=== PATIENT | male | born 1970 | race Caucasian/White ===

== ENCOUNTER 2020-06-11 13:29 | Emergency (ER) | payer MEDICARE, OTHER ==
[~2020-06-11] VITALS: Ht 170.2 cm; Wt 90.0 kg
[2020-06-11 13:32] VITALS: BP 136/80
--- NOTE | 2020-06-11 14:44 | NUR ---
Patient seen and assessed by provider.
== END 2020-06-11 14:47 | disposition home or self-care (01) ==
LOC: ER 13:30
DX: F15.10 Other stimulant abuse, uncomplicated (principal); F17.200 Nicotine dependence, unspecified, uncomplicated
CPT/HCPCS: 99281

== ENCOUNTER 2020-12-10 12:14 | Emergency (ER) | payer MEDICARE, OTHER ==
[~2020-12-10] VITALS: Ht 170.2 cm; Wt 85.5 kg
[2020-12-10 12:22] VITALS: BP 119/81
[2020-12-10] MEDS ORDERED: CEPH250T PO (13:12)
== END 2020-12-10 13:34 | disposition home or self-care (01) ==
LOC: ER 12:14
DX: S20.362A Insect bite (nonvenomous) of left front wall of thorax, initial encounter (principal); L02.213 Cutaneous abscess of chest wall; F15.90 Other stimulant use, unspecified, uncomplicated; Z79.2 Long term (current) use of antibiotics; W57.XXXA Bitten or stung by nonvenomous insect and other nonvenomous arthropods, initial encounter; Y93.89 Activity, other specified; Y92.89 Other specified places as the place of occurrence of the external cause; Y99.8 Other external cause status
CPT/HCPCS: 10060; 99283

== ENCOUNTER 2021-03-06 16:50 | Emergency (ER) | payer MEDICARE ==
[~2021-03-06] VITALS: Ht 170.2 cm; Wt 90.9 kg
[2021-03-06 17:07] VITALS: BP 158/103
[2021-03-06] MEDS ORDERED: LURA80TA3 PO (17:10)
== END 2021-03-06 18:03 | disposition home or self-care (01) ==
LOC: ER 16:50
DX: Z76.0 Encounter for issue of repeat prescription (principal); F22 Delusional disorders; R10.9 Unspecified abdominal pain; E11.9 Type 2 diabetes mellitus without complications; F20.9 Schizophrenia, unspecified; F15.90 Other stimulant use, unspecified, uncomplicated; Z88.2 Allergy status to sulfonamides; Z79.899 Other long term (current) drug therapy
CPT/HCPCS: 99281

== ENCOUNTER 2021-11-26 05:09 | Emergency (ER) | payer MEDICARE, MEDICAID ==
[~2021-11-26] VITALS: Ht 170.2 cm; Wt 90.9 kg
[~2021-11-26 05:09] MED LIST: LURA80TA2 PO
[2021-11-26 05:22] VITALS: BP 125/80
== END 2021-11-26 06:34 | disposition left against medical advice (07) ==
LOC: ER 05:10
DX: L29.9 Pruritus, unspecified (principal); Z53.21 Procedure and treatment not carried out due to patient leaving prior to being seen by health care provider

== ENCOUNTER 2022-02-02 16:40 | Emergency (ER) | payer MEDICAID, MEDICARE ==
[~2022-02-02] VITALS: Ht 170.2 cm; Wt 86.0 kg
[2022-02-02 16:50] VITALS: BP 128/78
[2022-02-02] MEDS ORDERED: LIDOCAINE 1%/EPI 1:100,000 inj. 10 ML multi-dose vial IJ ONE (17:30)
[2022-02-02] MEDS ORDERED: DOXYCYCLINE 100MG CAPSULE PO STA (17:31)
[2022-02-02] MEDS ORDERED: cephalexin 250mg capsule PO ONE (17:35)
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
[2022-02-02] MEDS ORDERED: DOXY100C76 PO (17:51)
[2022-02-02] MEDS ORDERED: CEPH250T PO (17:51)
== END 2022-02-02 18:02 | disposition home or self-care (01) ==
LOC: ER 16:40
DX: L02.212 Cutaneous abscess of back [any part, except buttock and flank] (principal); E11.9 Type 2 diabetes mellitus without complications; F20.9 Schizophrenia, unspecified; F15.90 Other stimulant use, unspecified, uncomplicated; Z72.0 Tobacco use; Z88.2 Allergy status to sulfonamides; Z79.2 Long term (current) use of antibiotics; Z79.899 Other long term (current) drug therapy
CPT/HCPCS: 10060; 99283; J3490; A6449

== ENCOUNTER 2022-08-28 08:37 | Emergency (ER) | payer MEDICAID ==
[~2022-08-28] VITALS: Ht 170.2 cm; Wt 83.0 kg
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
[2022-08-28 10:03] LABS: BASOPHILS # (AUTO) 0.1 X10'3 (0-0.2); BASOPHILS % (AUTO) 0.9 % (0-1); EOSINOPHILS # (AUTO) 0.3 X10'3 (0-0.9); EOSINOPHILS % (AUTO) 3.7 % (0-6); HEMATOCRIT 43.9 % (42.0-52.0); HEMOGLOBIN 14.4 g/dl (14.0-17.9); LYMPHOCYTES # (AUTO) 2.9 X10'3 (1.1-4.8); LYMPHOCYTES % (AUTO) 34.1 % (21-51); MEAN CORPUSCULAR HEMOGLOBIN 27.8 PG (27.0-31.0); MEAN CORPUSCULAR HGB CONC 32.8 g/dL (33.0-36.5); MEAN CORPUSCULAR VOLUME 84.6 FL (78-98); MEAN PLATELET VOLUME 7.4 FL (7.4-10.4); MONOCYTES # (AUTO) 0.5 X10'3 (0-0.9); MONOCYTES % (AUTO) 5.8 % (2-12); NEUTROPHILS # (AUTO) 4.8 X10'3 (1.8-7.7); NEUTROPHILS % (AUTO) 55.5 % (42-75); PLATELET COUNT 313 X10'3 (140-440); RED CELL DISTRIBUTION WIDTH 14.8 % (11.5-14.5); WHITE BLOOD COUNT 8.6 X10'3 (4.5-11.0)
[2022-08-28 10:08] LABS: ALANINE AMINOTRANSFERASE 25 U/L (12-78); ALBUMIN 3.6 G/DL (3.4-5.0); ALBUMIN/GLOBULIN RATIO 1.1 (1.1-1.5); ALKALINE PHOSPHATASE 109 IU/L (46-116); ANION GAP 4 (8-16); ASPARTATE AMINO TRANSFERASE 12 U/L (10-37); BILIRUBIN,TOTAL 0.4 MG/DL (0.1-1.0); BLOOD UREA NITROGEN 8 MG/DL (7-18); CALCIUM 9.4 MG/DL (8.5-10.1); CHLORIDE 104 MMOL/L (99-107); ETHANOL < 0.010 GM/DL (0.0-0.010); GLUCOSE 164 MG/DL (70-104); POTASSIUM 4.5 MMOL/L (3.5-5.1); SODIUM 141 MMOL/L (135-145); TOTAL CARBON DIOXIDE 33.2 MMOL/L (24-32); eGFR 78 ML/MIN
[2022-08-28 10:22] VITALS: BP 150/95
[2022-08-28 11:05] LABS: CLARITY,URINE CLEAR (Clear); COLOR,URINE YELLOW (Yellow); GLUCOSE, URINE NEGATIVE (Neg); KETONES,URINE NEGATIVE (Neg); LEUKOCYTE ESTERASE ,URINE NEGATIVE (Neg); NITRITES, URINE NEGATIVE (Neg); OCCULT BLOOD,URINE NEGATIVE (Neg); PROTEIN,URINE NEGATIVE (Neg); UROBILINOGEN,URINE 0.2 E.U/dL (0.2-1.0)
[2022-08-28 11:20] LABS: URINE AMPHETAMINE SCREEN NEGATIVE (Neg); URINE BARBITUATE SCREEN NEGATIVE (Neg); URINE BENZODIAZEPINES SCREEN NEGATIVE (Neg); URINE CANNABINOID SCREEN NEGATIVE (Neg); URINE COCAINE SCREEN NEGATIVE (Neg); URINE METHADONE SCREEN NEGATIVE (Neg); URINE OPIATE SCREEN NEGATIVE (Neg); URINE PHENCYCLIDINE SCREEN NEGATIVE (Neg)
[2022-08-28 11:23] LABS: UA COLLECTION TYPE CLN CATCH MIDSTREAM
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
== END 2022-08-28 13:12 | disposition left against medical advice (07) ==
LOC: ER 08:38
DX: F79 Unspecified intellectual disabilities (principal); M25.511 Pain in right shoulder; F20.9 Schizophrenia, unspecified; E11.9 Type 2 diabetes mellitus without complications; F15.10 Other stimulant abuse, uncomplicated; Z88.2 Allergy status to sulfonamides; Z79.899 Other long term (current) drug therapy
CPT/HCPCS: 36415; 70450; 80053; 80305; 80320; 81003; 82948; 85025; 99285

== ENCOUNTER 2022-09-15 20:50 | Emergency (ER) | payer MEDICAID ==
[~2022-09-15] VITALS: Ht 170.2 cm; Wt 90.0 kg
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
[2022-09-15] MEDS ORDERED: acetaminophen 325mg tablet PO ONE (22:30)
[2022-09-16 00:04] VITALS: BP 130/81
== END 2022-09-16 00:05 | disposition home or self-care (01) ==
LOC: ER 20:51
DX: S00.81XA Abrasion of other part of head, initial encounter (principal); F17.200 Nicotine dependence, unspecified, uncomplicated; F15.20 Other stimulant dependence, uncomplicated; M25.522 Pain in left elbow; Z88.2 Allergy status to sulfonamides; E11.9 Type 2 diabetes mellitus without complications; Y08.89XA Assault by other specified means, initial encounter; Y93.89 Activity, other specified; Y92.89 Other specified places as the place of occurrence of the external cause; Y99.8 Other external cause status
CPT/HCPCS: 70450; 70486; 72125; 73080; 93005; 99284

== ENCOUNTER 2022-09-19 19:05 | Emergency (ER) | payer MEDICAID ==
[~2022-09-19] VITALS: Ht 170.2 cm; Wt 84.1 kg
[2022-09-19 19:09] VITALS: BP 137/95
[2022-09-19 20:21] LABS: BASOPHILS # (AUTO) 0.1 X10'3 (0-0.2); EOSINOPHILS # (AUTO) 0.4 X10'3 (0-0.9); EOSINOPHILS % (AUTO) 4.5 % (0-6); HEMATOCRIT 41.4 % (42.0-52.0); HEMOGLOBIN 13.9 g/dl (14.0-17.9); LYMPHOCYTES % (AUTO) 32.1 % (21-51); MEAN CORPUSCULAR HEMOGLOBIN 27.9 PG (27.0-31.0); MEAN CORPUSCULAR HGB CONC 33.6 g/dL (33.0-36.5); MEAN CORPUSCULAR VOLUME 83.1 FL (78-98); MEAN PLATELET VOLUME 7.2 FL (7.4-10.4); MONOCYTES # (AUTO) 0.8 X10'3 (0-0.9); MONOCYTES % (AUTO) 8.8 % (2-12); NEUTROPHILS # (AUTO) 5.1 X10'3 (1.8-7.7); NEUTROPHILS % (AUTO) 53.6 % (42-75); PLATELET COUNT 289 X10'3 (140-440); RED BLOOD COUNT 4.98 X10'6 (4.70-6.10); RED CELL DISTRIBUTION WIDTH 14.6 % (11.5-14.5); WHITE BLOOD COUNT 9.4 X10'3 (4.5-11.0)
[2022-09-19 20:39] LABS: ALANINE AMINOTRANSFERASE 25 U/L (12-78); ALBUMIN 3.9 G/DL (3.4-5.0); ALBUMIN/GLOBULIN RATIO 1.1 (1.1-1.5); ALKALINE PHOSPHATASE 113 IU/L (46-116); ANION GAP 9 (8-16); ASPARTATE AMINO TRANSFERASE 16 U/L (10-37); BILIRUBIN,TOTAL 0.7 MG/DL (0.1-1.0); BLOOD UREA NITROGEN 13 MG/DL (7-18); BUN/CREATININE RATIO 12.1 (10.0-20.0); CALCIUM 9.4 MG/DL (8.5-10.1); CHLORIDE 107 MMOL/L (99-107); CREATININE 1.07 MG/DL (0.60-1.10); GLUCOSE 121 MG/DL (70-104); POTASSIUM 4.1 MMOL/L (3.5-5.1); SODIUM 145 MMOL/L (135-145); TOTAL CARBON DIOXIDE 28.9 MMOL/L (24-32); TOTAL PROTEIN 7.5 G/DL (6.4-8.2); eGFR 72 ML/MIN
== END 2022-09-19 21:40 | disposition home or self-care (01) ==
LOC: ER 19:06
DX: R42 Dizziness and giddiness (principal); Z53.21 Procedure and treatment not carried out due to patient leaving prior to being seen by health care provider
CPT/HCPCS: 36415; 80053; 85025; 99281

== ENCOUNTER 2022-11-07 18:59 | Emergency (ER) | payer MEDICAID ==
[~2022-11-07] VITALS: Ht 170.2 cm; Wt 81.3 kg
[~2022-11-07 18:59] MED LIST changes: +CEPH-585 PO
[2022-11-07 19:04] VITALS: BP 153/93; PULSE 91; RESP 18; TEMP 97.3; O2SAT 98
[2022-11-07] MEDS ORDERED: ibuprofen tablet 400 MG TABLET PO ONE (19:50)
== END 2022-11-07 20:15 | disposition home or self-care (01) ==
LOC: ER 18:59
DX: S76.812A Strain of other specified muscles, fascia and tendons at thigh level, left thigh, initial encounter (principal); W17.89XA Other fall from one level to another, initial encounter; Y93.89 Activity, other specified; Y92.89 Other specified places as the place of occurrence of the external cause; Y99.8 Other external cause status; E11.9 Type 2 diabetes mellitus without complications; F20.9 Schizophrenia, unspecified; F17.200 Nicotine dependence, unspecified, uncomplicated; F12.10 Cannabis abuse, uncomplicated; F15.10 Other stimulant abuse, uncomplicated; Z79.899 Other long term (current) drug therapy; Z88.2 Allergy status to sulfonamides
CPT/HCPCS: 73552; 99283

== ENCOUNTER 2023-02-08 17:49 | Emergency (ER) | payer MEDICARE, MEDICAID ==
[~2023-02-08] VITALS: Ht 170.2 cm; Wt 82.3 kg
[2023-02-08 18:08] LABS: BASOPHILS # (AUTO) 0.1 X10'3 (0-0.2); BASOPHILS % (AUTO) 0.7 % (0-1); EOSINOPHILS # (AUTO) 0.6 X10'3 (0-0.9); EOSINOPHILS % (AUTO) 5.4 % (0-6); HEMATOCRIT 41.6 % (42.0-52.0); HEMOGLOBIN 14.1 g/dl (14.0-17.9); LYMPHOCYTES # (AUTO) 2.7 X10'3 (1.1-4.8); MEAN CORPUSCULAR HEMOGLOBIN 28.2 PG (27.0-31.0); MEAN CORPUSCULAR VOLUME 83.1 FL (78-98); MONOCYTES # (AUTO) 0.7 X10'3 (0-0.9); MONOCYTES % (AUTO) 7.1 % (2-12); NEUTROPHILS # (AUTO) 6.4 X10'3 (1.8-7.7); NEUTROPHILS % (AUTO) 60.8 % (42-75); PLATELET COUNT 286 X10'3 (140-440); RED BLOOD COUNT 5.01 X10'6 (4.70-6.10); RED CELL DISTRIBUTION WIDTH 14.2 % (11.5-14.5); WHITE BLOOD COUNT 10.5 X10'3 (4.5-11.0)
[2023-02-08 18:14] VITALS: BP 146/93; PULSE 88; RESP 18; TEMP 98.5; O2SAT 99
[2023-02-08 18:26] LABS: ALANINE AMINOTRANSFERASE 20 U/L (12-78); ALBUMIN 3.7 G/DL (3.4-5.0); ALBUMIN/GLOBULIN RATIO 0.9 (1.1-1.5); ALKALINE PHOSPHATASE 109 IU/L (46-116); ANION GAP 7 (8-16); ASPARTATE AMINO TRANSFERASE 14 U/L (10-37); BILIRUBIN,TOTAL 0.3 MG/DL (0.1-1.0); BLOOD UREA NITROGEN 13 MG/DL (7-18); CALCIUM 9.6 MG/DL (8.5-10.1); CHLORIDE 103 MMOL/L (99-107); GLUCOSE 118 MG/DL (70-104); POTASSIUM 3.9 MMOL/L (3.5-5.1); SODIUM 141 MMOL/L (135-145); TOTAL CARBON DIOXIDE 30.9 MMOL/L (24-32); TOTAL PROTEIN 7.6 G/DL (6.4-8.2); eCRCL 80 ML/MIN; eGFR 78 ML/MIN
[2023-02-08 18:35] LABS: PRO BRAIN NATRIURETIC PEPTIDE 95 PG/ML (0-125)
== END 2023-02-08 20:04 | disposition left against medical advice (07) ==
LOC: ER 17:50
DX: R07.89 Other chest pain (principal); M79.631 Pain in right forearm; Z53.21 Procedure and treatment not carried out due to patient leaving prior to being seen by health care provider
CPT/HCPCS: 36415; 71046; 73060; 73090; 80053; 83880; 84484; 85025; 93005; 99281

== ENCOUNTER 2023-02-11 09:59 | Emergency (ER) | payer MEDICAID, MEDICARE ==
[~2023-02-11] VITALS: Ht 170.2 cm; Wt 83.0 kg
[2023-02-11 10:24] VITALS: BP 133/96; PULSE 91; RESP 16; TEMP 97.7; O2SAT 97
--- NOTE | 2023-02-11 11:40 | NUR ---
PT REFUSED VS TO BE TAKEN.
== END 2023-02-11 23:04 | disposition left against medical advice (07) ==
LOC: ER 10:00
DX: F29 Unspecified psychosis not due to a substance or known physiological condition (principal); Z53.21 Procedure and treatment not carried out due to patient leaving prior to being seen by health care provider
CPT/HCPCS: 99281

== ENCOUNTER 2023-02-22 03:32 | Emergency (ER) | payer MEDICAID, MEDICARE ==
[~2023-02-22] VITALS: Ht 167.6 cm; Wt 82.3 kg
[2023-02-22 03:46] VITALS: BP 139/99; PULSE 83; RESP 16; TEMP 98.2; O2SAT 98
== END 2023-02-22 05:32 | disposition home or self-care (01) ==
LOC: ER 03:33
DX: F15.10 Other stimulant abuse, uncomplicated (principal); K21.9 Gastro-esophageal reflux disease without esophagitis
CPT/HCPCS: 82948; 99282

== ENCOUNTER 2023-02-28 01:13 | Emergency (ER) | payer MEDICAID ==
[~2023-02-28] VITALS: Ht 170.2 cm; Wt 86.4 kg
[2023-02-28 01:15] VITALS: TEMP 98.2
[2023-02-28 02:48] VITALS: BP 148/82; PULSE 88; RESP 16; O2SAT 98
== END 2023-02-28 03:17 | disposition left against medical advice (07) ==
LOC: ER 01:13
DX: R07.89 Other chest pain (principal); E11.9 Type 2 diabetes mellitus without complications; F12.90 Cannabis use, unspecified, uncomplicated; F15.90 Other stimulant use, unspecified, uncomplicated; Z56.0 Unemployment, unspecified; Z88.1 Allergy status to other antibiotic agents; Z79.2 Long term (current) use of antibiotics; Z79.899 Other long term (current) drug therapy
CPT/HCPCS: 71045; 93005; 99284

== ENCOUNTER 2023-04-11 17:31 | Emergency (ER) | payer MEDICAID ==
[~2023-04-11] VITALS: Ht 170.2 cm; Wt 81.8 kg
[2023-04-11 18:09] LABS: BASOPHILS # (AUTO) 0.1 X10'3 (0-0.2); BASOPHILS % (AUTO) 0.8 % (0-1); EOSINOPHILS # (AUTO) 0.2 X10'3 (0-0.9); EOSINOPHILS % (AUTO) 3.2 % (0-6); HEMATOCRIT 39.7 % (42.0-52.0); HEMOGLOBIN 13.1 g/dl (14.0-17.9); LYMPHOCYTES # (AUTO) 1.8 X10'3 (1.1-4.8); LYMPHOCYTES % (AUTO) 23.4 % (21-51); MEAN CORPUSCULAR HEMOGLOBIN 27.1 PG (27.0-31.0); MEAN CORPUSCULAR HGB CONC 33.1 g/dL (33.0-36.5); MEAN CORPUSCULAR VOLUME 81.9 FL (78-98); MEAN PLATELET VOLUME 6.9 FL (7.4-10.4); MONOCYTES # (AUTO) 0.9 X10'3 (0-0.9); MONOCYTES % (AUTO) 11.9 % (2-12); NEUTROPHILS # (AUTO) 4.7 X10'3 (1.8-7.7); NEUTROPHILS % (AUTO) 60.7 % (42-75); PLATELET COUNT 280 X10'3 (140-440); RED BLOOD COUNT 4.84 X10'6 (4.70-6.10); RED CELL DISTRIBUTION WIDTH 14.4 % (11.5-14.5); WHITE BLOOD COUNT 7.8 X10'3 (4.5-11.0)
[2023-04-11 18:28] LABS: ALANINE AMINOTRANSFERASE 15 U/L (12-78); ALBUMIN 3.4 G/DL (3.4-5.0); ALBUMIN/GLOBULIN RATIO 0.8 (1.1-1.5); ALKALINE PHOSPHATASE 134 IU/L (46-116); ANION GAP 8 (8-16); ASPARTATE AMINO TRANSFERASE 17 U/L (10-37); BILIRUBIN,TOTAL 0.5 MG/DL (0.1-1.0); BLOOD UREA NITROGEN 22 MG/DL (7-18); CALCIUM 9.4 MG/DL (8.5-10.1); CHLORIDE 106 MMOL/L (99-107); CREATININE 1.05 MG/DL (0.60-1.10); ETHANOL < 10 MG/DL (<10); GLUCOSE 161 MG/DL (70-104); POTASSIUM 3.8 MMOL/L (3.5-5.1); SODIUM 141 MMOL/L (135-145); THYROID STIMULATING HORMONE 0.83 ulU/ml (0.34-4.50); TOTAL PROTEIN 7.5 G/DL (6.4-8.2); eCRCL 76 ML/MIN; eGFR 74 ML/MIN
[2023-04-12 05:33] LABS: BILIRUBIN,URINE NEGATIVE (Neg); CLARITY,URINE CLEAR (Clear); COLOR,URINE YELLOW (Yellow); GLUCOSE, URINE NEGATIVE (Neg); KETONES,URINE NEGATIVE (Neg); LEUKOCYTE ESTERASE ,URINE NEGATIVE (Neg); NITRITES, URINE NEGATIVE (Neg); OCCULT BLOOD,URINE NEGATIVE (Neg); PH,URINE 6.5 (4.8-8.0); PROTEIN,URINE NEGATIVE (Neg)
[2023-04-12 05:39] LABS: UA COLLECTION TYPE NON-SPECIFIED
[2023-04-12 05:45] LABS: URINE AMPHETAMINE SCREEN POSITIVE (Neg); URINE BARBITUATE SCREEN NEGATIVE (Neg); URINE BENZODIAZEPINES SCREEN NEGATIVE (Neg); URINE CANNABINOID SCREEN POSITIVE (Neg); URINE COCAINE SCREEN NEGATIVE (Neg); URINE METHADONE SCREEN NEGATIVE (Neg); URINE OPIATE SCREEN NEGATIVE (Neg); URINE PHENCYCLIDINE SCREEN NEGATIVE (Neg)
[2023-04-12] MEDS ORDERED: LURA80TA2 PO (07:27)
[2023-04-12] MEDS: OLANZapine 5mg rapidly disint. tablet PO SCH (08:00)
[2023-04-12] MEDS: haloperidol lactate 5mg/ml inj ONE (08:09)
[2023-04-12] MEDS: LORazepam 2 mg/ml vial ONE (08:10)
[2023-04-12] MEDS: diphenhydrAMINE 50 mg/ml inj ONE (08:11)
[2023-04-12] MEDS: lurasidone 20mg tablet PO SCH (21:00)
[2023-04-13] MEDS: LORazepam 2 mg/ml vial IM ONE (09:50)
[2023-04-13] MEDS: haloperidol lactate 5mg/ml inj IM ONE (09:50)
[2023-04-13] MEDS: diphenhydrAMINE 50 mg/ml inj IM ONE (09:50)
[2023-04-14] MEDS ORDERED: haloperidol lactate 5mg/ml inj IM PRN (09:25)
[2023-04-14] MEDS: LORazepam 2 mg/ml vial IM ONE (17:24)
[2023-04-14] MEDS: diphenhydrAMINE 50 mg/ml inj IM PRN (17:24)
[2023-04-14] MEDS: normal saline 1000ml 1,000 ML IV ONE (17:25)
[2023-04-14] MEDS: haloperidol lactate 5mg/ml inj IM PRN (17:33)
[2023-04-14 18:05] LABS: BASOPHILS # (AUTO) 0.1 X10'3 (0-0.2); BASOPHILS % (AUTO) 0.7 % (0-1); EOSINOPHILS # (AUTO) 0.1 X10'3 (0-0.9); EOSINOPHILS % (AUTO) 1.3 % (0-6); HEMATOCRIT 40.9 % (42.0-52.0); HEMOGLOBIN 13.6 g/dl (14.0-17.9); LYMPHOCYTES # (AUTO) 2.2 X10'3 (1.1-4.8); LYMPHOCYTES % (AUTO) 20.9 % (21-51); MEAN CORPUSCULAR HEMOGLOBIN 27.4 PG (27.0-31.0); MEAN CORPUSCULAR HGB CONC 33.2 g/dL (33.0-36.5); MEAN CORPUSCULAR VOLUME 82.3 FL (78-98); MEAN PLATELET VOLUME 7.3 FL (7.4-10.4); MONOCYTES # (AUTO) 0.9 X10'3 (0-0.9); MONOCYTES % (AUTO) 8.3 % (2-12); NEUTROPHILS # (AUTO) 7.4 X10'3 (1.8-7.7); NEUTROPHILS % (AUTO) 68.8 % (42-75); PLATELET COUNT 247 X10'3 (140-440); RED BLOOD COUNT 4.97 X10'6 (4.70-6.10); RED CELL DISTRIBUTION WIDTH 14.2 % (11.5-14.5); WHITE BLOOD COUNT 10.7 X10'3 (4.5-11.0)
[2023-04-14 18:36] LABS: ALANINE AMINOTRANSFERASE 33 U/L (12-78); ALBUMIN/GLOBULIN RATIO 0.7 (1.1-1.5); ALKALINE PHOSPHATASE 120 IU/L (46-116); ANION GAP 6 (8-16); ASPARTATE AMINO TRANSFERASE 39 U/L (10-37); BILIRUBIN,TOTAL 0.3 MG/DL (0.1-1.0); BLOOD UREA NITROGEN 21 MG/DL (7-18); BUN/CREATININE RATIO 18.6 (10.0-20.0); CALCIUM 8.9 MG/DL (8.5-10.1); CHLORIDE 102 MMOL/L (99-107); CREATININE 1.13 MG/DL (0.60-1.10); ETHANOL < 10 MG/DL (<10); GLUCOSE 170 MG/DL (70-104); SODIUM 138 MMOL/L (135-145); TOTAL CARBON DIOXIDE 30.3 MMOL/L (24-32); TOTAL PROTEIN 7.3 G/DL (6.4-8.2); eCRCL 71 ML/MIN; eGFR 68 ML/MIN
[2023-04-15 05:41] LABS: BILIRUBIN,URINE NEGATIVE (Neg); CLARITY,URINE CLEAR (Clear); COLOR,URINE YELLOW (Yellow); GLUCOSE, URINE NEGATIVE (Neg); KETONES,URINE NEGATIVE (Neg); LEUKOCYTE ESTERASE ,URINE NEGATIVE (Neg); NITRITES, URINE NEGATIVE (Neg); OCCULT BLOOD,URINE NEGATIVE (Neg); PH,URINE 5.5 (4.8-8.0); PROTEIN,URINE NEGATIVE (Neg); UROBILINOGEN,URINE 0.2 E.U/dL (0.2-1.0)
[2023-04-15 05:46] LABS: UA COLLECTION TYPE NON-SPECIFIED
[2023-04-15 05:59] VITALS: BP 125/72; PULSE 75; TEMP 97.7; O2SAT 97
[2023-04-15 06:02] LABS: URINE AMPHETAMINE SCREEN NEGATIVE (Neg); URINE BARBITUATE SCREEN NEGATIVE (Neg); URINE BENZODIAZEPINES SCREEN NEGATIVE (Neg); URINE CANNABINOID SCREEN POSITIVE (Neg); URINE COCAINE SCREEN NEGATIVE (Neg); URINE METHADONE SCREEN NEGATIVE (Neg); URINE OPIATE SCREEN NEGATIVE (Neg); URINE PHENCYCLIDINE SCREEN NEGATIVE (Neg)
[2023-04-15 08:00] VITALS: RESP 16
== END 2023-04-15 14:40 ==
LOC: ER 17:32
DX: F20.9 Schizophrenia, unspecified (principal); F15.10 Other stimulant abuse, uncomplicated; N20.9 Urinary calculus, unspecified; Z20.822 Contact with and (suspected) exposure to COVID-19; E11.9 Type 2 diabetes mellitus without complications; F12.90 Cannabis use, unspecified, uncomplicated; Z88.2 Allergy status to sulfonamides; Z56.0 Unemployment, unspecified; Z79.899 Other long term (current) drug therapy; Z79.2 Long term (current) use of antibiotics
CPT/HCPCS: 36415; 80053; 80305; 80320; 81003; 84443; 85025; 87811; 96372; 99285; J1200; J1630; J2060